=== PATIENT | male | born 2000 | race Caucasian/White ===

== ENCOUNTER 2024-08-08 11:02 | Emergency (ER) | payer BC, SELFPAY ==
[2024-08-08 11:12] VITALS: BP 154/76; PULSE 98; RESP 20; TEMP 36.6; O2SAT 99
--- NOTE | 2024-08-08 11:14 | ED_ITS ---
HPI - Skin/Abscess/Foreign Bdy General Chief complaint: Skin/Abscess/Foreign Body Stated complaint: rash on body Source: patient Mode of arrival: ambulatory Limitations: no limitations History of Present Illness HPI narrative: Patient is a 24-year-old male who presents clinic with complaints of an itchy rash x 3 days. He states that he has been fishing and is unsure if he got into any poison rosamaria or other plants. He denies any use of new products. He has been using calamine lotion over the counter with minimal relief. He has not been taking any medications [id number]. Denies any shortness of breath, di fficulty swallowing, nausea, vomiting, diarrhea or fevers. Related Data Allergies Allergy/AdvReac Type Severity Reaction Status Date / Time No Known Allergies Allergy Verified 08/08/24 11:21 Review of Systems Review of Systems: CONSTITUTIONAL: Denies body aches, fever, chills, or sweats. EYES: Denies visual changes, redness, or discharge. ENT: Denies rhinorrhea, congestion CARDIOVASCULAR: Denies chest pain, palpitations, or edema. RESPIRATORY: Denies cough or dyspnea. GASTROINTESTINAL: Denies abdominal pain, nausea, vomiting, or diarrhea. SKIN: Reports an itchy rash to right forearm and left side of his lower back. MUSCULOSKELETAL: Denies back pain, joint pain, or myalgia. NEUROLOGIC: Denies headache, numbness, tingling, or weakness. All systems reviewed & are unremarkable except as noted in HPI and below PMFSH Comments At time of signature, I have reviewed and agree with nursing past medical, surgical, social and family history unless otherwise noted. Please see nursing chart for further information. There is no relevant family history pertinent to the presenting complaint. Exam Narrative: GENERAL: Well-appearing HEAD: Normocephalic, atraumatic. EYES: ?conjunctivae clear, and EOMI. ENT: Mucous membranes moist. Oropharynx without edema, erythema or lesions. NECK: Supple. No lymphadenopathy CHEST: Clear to auscultation. HEART: Regular rate and rhythm. SKIN: Warm, dry. Raised, Erythemic papules and Itchy rash noted to right forearm and left lower back. NEURO: ?Alert and oriented x3.? Course Course Level of Care: Express Care Visit Vital Signs Vital signs: Reviewed MDM - Skin/Abscess/Foreign Bdy MDM Narrative Medical decision making narrative: Discussed physical exam findings. Prednisone and triamcinolone prescriptions given. Advised supportive measures and signs/symptoms to go to the ER. Pt is appropriate for outpatient treatment and follow up. Differential Diagnosis Differential diagnosis: Likely contact dermatitis and other (poision rosamaria) Critical Care Time Critical Care Time Critical Care Time: No Discharge Plan Discharge Clinical Impression: Poison rosamaria Patient Disposition: Home Condition: Stable Instructions: Poison Rosamaria (ED) Additional Instructions: The most important part of your care is follow up with Primary care provider. Use triamcinolone as prescribed Take Benadryl 25-50 mg every 6 hours for itching Take Claritin, Zyrtec, or Alma daily for the next 7 days Take the steroids starting today. Avoid hot showers, Take cool showers. Wash the area with gentle soap and water only. Use skin cream as prescribed to reduce itchiness Avoid scratching when possible to prevent worsening of the condition and disruption of the skin that could lead to bacterial infection To relieve itching, place a cool washcloth or some ice over the area that itches, rather than scratching Follow up with primary care provider or seek ER if you have trouble breathing, become hoarse, or start wheezing, develop belly cramps, vomiting or feel dizzy. Patient Language: Maltese Prescriptions: New triamcinolone acetonide 0.1 % cream 1 applic topical BID Qty: 30 0RF prednisone 10 mg tablet See Rx Instructions .Route .COMPLEX Qty: 30 0RF Rx Instructions: 60mg PO daily on day 1, 40mg PO daily for days 2-4, 30 mg PO daily on days 5- 6, 20mg PO daily on days 7-8, 10mg PO daily on days 9-10. Follow-up/Referrals: PHYSICIAN,MANAGER PLUM[facility] [Primary Care Provider] - Stand Alone Forms: Work/School Release IP Time of Disposition: 11:28
== END 2024-08-08 11:30 | disposition home or self-care (01) ==
DX: L23.7 Allergic contact dermatitis due to plants, except food (principal)
CPT/HCPCS: 99213; G0463